=== PATIENT | female | born 1970 | race Caucasian/White ===

== ENCOUNTER 2017-01-28 00:03 | Emergency (ER) | payer BC ==
[2017-01-28 00:16] VITALS: BP 138/66
[2017-01-28] MEDS ORDERED: Ondansetron 4 MG/2 ML SDV IV ONE (00:33)
[2017-01-28] MEDS ORDERED: Sodium Chloride 0.9% 1,000 ML IV ONE (00:33)
--- NOTE | 2017-01-28 00:34 | EDM.PDOC ---
[id number]: SURG YESTERDAY MORNING, CANT KEEP ANYTHING DOWN Time Seen by Provider: 01/28/17 00:32 Source of Information: Reports: Patient History Limitations: Reports: No limitations - History of Present Illness INITIAL COMMENTS - FREE TEXT/NARRATIVE: vomiting all day s/p vein surgery yesterday. - Related Data Allergies/ADRs: Allergies Allergy/AdvReac Type Severity Reaction Status Date / Time atorvastatin Allergy Weakness Verified 01/28/17 00:19 zolmitriptan [From Zomig] Allergy Diarrhea Verified 01/28/17 00:19 sumatriptan [From Imitrex] AdvReac Chest Verified 01/28/17 00:16 Presssure sumatriptan succinate AdvReac Chest Verified 01/28/17 00:16 [From Imitrex] Presssure Home Meds: Home Meds Acetaminophen/Butalbital/Caff [Fioricet] 1 tab PO Q4H PRN 06/16/14 [History] Albuterol Sulfate [Albuterol Sulfate HFA] 2 puff INH Q4H PRN 06/16/14 [History] Aspirin [Halfprin] 1 tab PO DAILY 06/16/14 [History] Cranberry Ext/C/L. Sporogenes [Azo Cranberry] 1 tab PO DAILY 06/16/14 [History] Lisinopril 1 tab PO DAILY 06/16/14 [History] Vit #108/Iron/FA [ One Tablet] 1 tab PO DAILY 06/16/14 [History ] Warfarin Sodium [Jantoven] 1 tab PO ASDIRECTED 06/16/14 [History] Canagliflozin [Invokana] 100 mg PO DAILY 02/20/16 [History] Esomeprazole [NexIUM] 40 mg PO BEDTIME 02/20/16 [History] Glimepiride [Glimepiride] 6 mg PO DAILY 01/28/17 [History] Past Medical History Cardiovascular History: Reports: Aneurysm, Blood clots/VTE/DVT Other Respiratory History: allergies Gastrointestinal History: Reports: GERD Genitourinary History: Reports: None Neurological History: Reports: Migraines Endocrine/Metabolic History: Reports: Diabetes, type II - Past Surgical History HEENT Surgical History: Reports: Oral surgery Cardiovascular Surgical History: Reports: None GI Surgical History: Reports: Appendectomy, Cholecystectomy, Hernia repair/other Female Surgical History: Reports: section Neurological Surgical History: Reports: None Social & Family History - Family History Family Medical History: Noncontributory - Tobacco Use Smoking Status *Q: Never Smoker Second Hand Smoke Exposure: No - Caffeine Use Caffeine Use: Reports: Soda - Alcohol Use Days Per Week of Alcohol Use: 0 - Recreational Drug Use Recreational Drug Use: No - Living Situation & Occupation Living situation: Reports: with family Occupation: employed ED ROS GENERAL - Review of Systems Review Of Systems: ROS reveals no pertinent complaints other than HPI. ED EXAM, GI/ABD - Physical Exam Exam: See Below Exam Limited By: No limitations General Appearance: alert, WD/WN, mild distress, other (tearful) Ears: hearing grossly normal Throat/Mouth: Normal voice, No airway compromise Head: atraumatic Neck: non-tender Respiratory/Chest: no respiratory distress Cardiovascular: regular rate, rhythm GI/Abdominal: soft, non tender Neurological: alert, normal cognition, normal gait, no motor/sensory deficits Psychiatric: tearful Skin Exam: Warm, Dry Lymphatic: no adenopathy Course - Vital Signs Last Recorded V/S: Last Vital Signs Temp 36.2 C 01/28/17 00:09 Pulse 80 01/28/17 00:09 Resp 18 01/28/17 00:09 BP 138/66 01/28/17 00:09 Pulse Ox 99 01/28/17 00:09 - Orders/Labs/Meds Labs: Laboratory Tests 01/28/17 01/28/17 Range/Units 00:40 00:40 WBC 11.6 H (5.0-10.0) 10^3/uL RBC 4.95 (4.2-5.4) 10^6/uL Hgb 14.9 (12.0-16.0) g/dL Hct 44.8 (37.0-47.0) % MCV 90.5 (80-100) fL MCH 30.1 (27.0-34.0) pg MCHC 33.3 (33.0-35.0) g/dL Plt Count 233 (150-450) 10^3/uL Neut % (Auto) 66.5 (42.2-75.2) % Lymph % (Auto) 24.4 (20.5-50.1) % [place] % (Auto) 8.0 (2-8) % Eos % (Auto) 0.8 L (1.0-3.0) % Baso % (Auto) 0.3 (0.0-1.0) % Sodium 136 (135-145) mmol/L Potassium 3.7 (3.6-5.0) mmol/L Chloride 102 (101-111) mmol/L Carbon Dioxide 22.0 (21.0-31.0) mmol/L Anion Gap 15.7 BUN 11 (7-18) mg/dL Creatinine 0.6 (0.6-1.3) mg/dL Est Cr Clr Drug Dosing TNP Estimated GFR (MDRD) > 60 BUN/Creatinine Ratio 18.33 Glucose 198 H (74-105) mg/dL Calcium 8.6 (8.4-10.2) mg/dl Total Bilirubin 0.9 (0.2-1.0) mg/dL AST 25 (10-42) IU/L ALT 27 (10-60) IU/L Alkaline Phosphatase 63 (42-121) IU/L Total Protein 7.4 (6.7-8.2) g/dl Albumin 3.9 (3.2-5.5) g/dl Globulin 3.5 Albumin/Globulin Ratio 1.11 Meds: Medications Discontinued Medications Generic Name Dose Route Start Last Admin Trade Name Freq PRN Reason Stop Dose Admin Sodium Chloride 1,000 mls @ 999 mls/hr 01/28/17 00:33 01/28/17 00:45 Normal Saline IV 01/28/17 01:33 999 mls/hr .BOLUS ONE Administration Ondansetron HCl 4 mg 01/28/17 00:33 01/28/17 00:45 Zofran IV 01/28/17 00:34 4 mg ONETIME ONE Administration Ondansetron HCl Confirm 01/28/17 01:42 01/28/17 01:47 Zofran Odt Administered 01/28/17 01:43 Not Given Dose 8 mg .ROUTE .STK-MED ONE - Re-Assessments/Exams Free Text/Narrative Re-Assessment/Exam: 01/28/17 01:20 re-exam: feeling better post IV + zof. Departure - Departure Time of Disposition: 01:57 Disposition: Home, Self-Care 01 Condition: good Clinical Impression: Vomiting Instructions: Nausea and Vomiting, Adult, [id number] Forms: ED Department Discharge Additional Instructions: 1) avoid solid foods and have liquids next 48 hours 2) follow up at clinic or recheck as needed rx given: zofran 4mg ODT bid prn x 6
[2017-01-28 01:06] LABS: CHLORIDE,CL 102 mmol/L (101-111); SODIUM,NA 136 mmol/L (135-145)
[2017-01-28] MEDS ORDERED: Ondansetron 4 MG Tab.DIS ONE (01:42)
[2017-01-28] MEDS ORDERED: Ondansetron 4 MG Tab.DIS PO ONE (01:42)
== END 2017-01-28 01:57 | disposition home or self-care (01) ==
LOC: DL.ED 00:03
DX: R11.10 Vomiting, unspecified (principal); K21.9 Gastro-esophageal reflux disease without esophagitis; E11.9 Type 2 diabetes mellitus without complications; Z98.890 Other specified postprocedural states; Z88.8 Allergy status to other drugs, medicaments and biological substances; Z79.82 Long term (current) use of aspirin; Z79.01 Long term (current) use of anticoagulants; Z79.899 Other long term (current) drug therapy
CPT/HCPCS: 36415; 80053; 85025; 96360; 99282; J2405; J7030; A9270-GY

== ENCOUNTER 2017-08-03 22:06 | Emergency (ER) | payer BC ==
[2017-08-03] MEDS ORDERED: Butorphanol 2 MG/ML SDV IM ONE (23:23)
[2017-08-03] MEDS ORDERED: Nitrofurantoin Monohydrate/Macrocrystalline 100 MG Cap PO ONE (23:23)
[2017-08-03] MEDS ORDERED: Promethazine 25 MG/ML SDV IM ONE (23:23)
--- NOTE | 2017-08-03 23:31 | EDM.PDOC ---
ED HPI GENERAL MEDICAL PROBLEM - General Chief Complaint: ENT Problem Stated Complaint: DRY SOCKET, FEVER [id number] Time Seen by Provider: 08/03/17 23:25 Source of Information: Reports: Patient History Limitations: Reports: No Limitations - History of Present Illness INITIAL COMMENTS - FREE TEXT/NARRATIVE: s/p tooth extraction last week developed dry socket been Tx by DDS pain is not getting better, also had s/s UTI was on macrobid and getting better but now feels like it's returning, also throat been hurting and feeling feverish & shaky. Treatments MANAGER SCIENCE: Reports: Acetaminophen Generalized Pain Score (Numeric/FACES): 9 - Related Data Allergies Allergy/AdvReac Type Severity Reaction Status Date / Time atorvastatin Allergy Weakness Verified 01/28/17 00:19 zolmitriptan [From Zomig] Allergy Diarrhea Verified 01/28/17 00:19 sumatriptan [From Imitrex] AdvReac Chest Verified 01/28/17 00:16 Presssure sumatriptan succinate AdvReac Chest Verified 01/28/17 00:16 [From Imitrex] Presssure Home Meds: Home Meds Acetaminophen/Butalbital/Caff [Fioricet] 1 tab PO Q4H PRN 06/16/14 [History] Albuterol Sulfate [Albuterol Sulfate HFA] 2 puff INH Q4H PRN 06/16/14 [History] Aspirin [Halfprin] 1 tab PO DAILY 06/16/14 [History] Cranberry Ext/C/L. Sporogenes [Azo Cranberry] 1 tab PO DAILY 06/16/14 [History] Lisinopril 1 tab PO DAILY 06/16/14 [History] Vit #108/Iron/FA [ One Tablet] 1 tab PO DAILY 06/16/14 [History ] Warfarin Sodium [Jantoven] 1 tab PO ASDIRECTED 06/16/14 [History] Canagliflozin [Invokana] 100 mg PO DAILY 02/20/16 [History] Esomeprazole [NexIUM] 40 mg PO BEDTIME 02/20/16 [History] Glimepiride [Glimepiride] 6 mg PO DAILY 01/28/17 [History] Past Medical History Cardiovascular History: Reports: Aneurysm, Blood Clots/VTE/DVT Other Respiratory History: allergies Gastrointestinal History: Reports: GERD Genitourinary History: Reports: None Neurological History: Reports: Migraines Endocrine/Metabolic History: Reports: Diabetes, Type II - Past Surgical History HEENT Surgical History: Reports: Oral Surgery GI Surgical History: Reports: Appendectomy, Cholecystectomy, Hernia Repair/Other Female Surgical History: Reports: Section Neurological Surgical History: Reports: None Other Musculoskeletal Surgeries/Procedures:: Right knee surgery on June Social & Family History - Family History Family Medical History: Noncontributory - Tobacco Use Smoking Status *Q: Former Smoker Used Tobacco, but Quit: No Second Hand Smoke Exposure: No - Caffeine Use Caffeine Use: Reports: Soda, Tea - Alcohol Use Days Per Week of Alcohol Use: 0 - Recreational Drug Use Recreational Drug Use: No - Living Situation & Occupation Living situation: Reports: with Family Occupation: Employed ED ROS ENT - Review of Systems Review Of Systems: ROS reveals no pertinent complaints other than HPI. ED EXAM, ENT - Physical Exam Exam: See Below Exam Limited By: No Limitations General Appearance: Alert, WD/WN, Mild Distress, Other (general discomfort) Ears: Normal External Exam, Normal Canal, Hearing Grossly Normal, Normal TMs Mouth/Throat: Pharyngeal Erythema Head: Atraumatic Neck: Non-Tender, Full Range of Motion Respiratory/Chest: No Respiratory Distress Cardiovascular: Regular Rate, Rhythm GI/Abdominal: Soft, Non-Tender Neurological: Alert, Oriented, Normal Cognition, Normal Gait, No Motor/Sensory Deficits Psychiatric: Tearful Skin: Warm, Dry, Normal Color Lymphatic: No Adenopathy Course - Vital Signs Last Recorded V/S: Last Vital Signs Temp 37.1 C 08/03/17 22:36 Pulse 103 H 08/03/17 22:36 Resp 20 08/03/17 22:36 BP 129/65 08/03/17 22:36 Pulse Ox 98 08/03/17 22:36 - Orders/Labs/Meds Orders: Active Orders 24 hr Category Date Time Status CULTURE BLOOD [BC] Stat Lab 08/03/17 23:50 Results Labs: Laboratory Tests 08/03/17 08/03/17 08/03/17 Range/Units 22:49 23:50 23:50 WBC 13.5 H (5.0-10.0) 10^3/uL RBC 4.79 (4.2-5.4) 10^6/uL Hgb 14.3 (12.0-16.0) g/dL Hct 43.4 (37.0-47.0) % MCV 90.6 (80-100) fL MCH 29.9 (27.0-34.0) pg MCHC 32.9 L (33.0-35.0) g/dL Plt Count 281 (150-450) 10^3/uL Neut % (Auto) 69.3 (42.2-75.2) % Lymph % (Auto) 20.3 L (20.5-50.1) % [place] % (Auto) 9.1 H (2-8) % Eos % (Auto) 1.1 (1.0-3.0) % Baso % (Auto) 0.2 (0.0-1.0) % Add Manual Diff Yes Neutrophils % (Manual) 61 (42-75) % Band Neutrophils % 4 % Lymphocytes % (Manual) 27 (20-50) % Atypical Lymphs % 0 % Monocytes % (Manual) 7 (2-8) % Eosinophils % (Manual) 1 (1-3) % Basophils % (Manual) 0 Sodium 136 (135-145) mmol/L Potassium 4.0 (3.6-5.0) mmol/L Chloride 101 (101-111) mmol/L Carbon Dioxide 23.0 (21.0-31.0) mmol/L Anion Gap 16.0 BUN 16 (7-18) mg/dL Creatinine 0.6 (0.6-1.3) mg/dL Est Cr Clr Drug Dosing 116.35 mL/min Estimated GFR (MDRD) > 60 BUN/Creatinine Ratio 26.66 Glucose 123 H (74-105) mg/dL Lactic Acid (0.5-2.2) mmol/L Calcium 8.6 (8.4-10.2) mg/dl Total Bilirubin 0.8 (0.2-1.0) mg/dL AST 18 (10-42) IU/L ALT 18 (10-60) IU/L Alkaline Phosphatase 66 (42-121) IU/L Total Protein 6.8 (6.7-8.2) g/dl Albumin 3.8 (3.2-5.5) g/dl Globulin 3.0 Albumin/Globulin Ratio 1.27 Urine Color Yellow (YELLOW) Urine Appearance Clear (CLEAR) Urine pH 6.5 (5.0-9.0) Ur Specific [place] 1.020 (1.005-1.030) Urine Protein Negative (NEGATIVE) Urine Glucose (UA) 500 H (NEGATIVE) Urine Ketones 40 H (NEGATIVE) Urine Occult Blood Negative (NEGATIVE) Urine Nitrite Negative (NEGATIVE) Urine Bilirubin Negative (NEGATIVE) Urine Urobilinogen 0.2 (0.2-1.0) mg/dL Ur Leukocyte Esterase Negative (NEGATIVE) Urine RBC Not seen /HPF Urine WBC 0-5 (0-5/HPF) /HPF Ur Epithelial Cells Few /HPF Urine Bacteria Moderate H (0-FEW/HPF) /HPF 08/03/17 Range/Units 23:50 WBC (5.0-10.0) 10^3/uL RBC (4.2-5.4) 10^6/uL Hgb (12.0-16.0) g/dL Hct (37.0-47.0) % MCV (80-100) fL MCH (27.0-34.0) pg MCHC (33.0-35.0) g/dL Plt Count (150-450) 10^3/uL Neut % (Auto) (42.2-75.2) % Lymph % (Auto) (20.5-50.1) % [place] % (Auto) (2-8) % Eos % (Auto) (1.0-3.0) % Baso % (Auto) (0.0-1.0) % Add Manual Diff Neutrophils % (Manual) (42-75) % Band Neutrophils % % Lymphocytes % (Manual) (20-50) % Atypical Lymphs % % Monocytes % (Manual) (2-8) % Eosinophils % (Manual) (1-3) % Basophils % (Manual) Sodium (135-145) mmol/L Potassium (3.6-5.0) mmol/L Chloride (101-111) mmol/L Carbon Dioxide (21.0-31.0) mmol/L Anion Gap BUN (7-18) mg/dL Creatinine (0.6-1.3) mg/dL Est Cr Clr Drug Dosing mL/min Estimated GFR (MDRD) BUN/Creatinine Ratio Glucose (74-105) mg/dL Lactic Acid 1.0 (0.5-2.2) mmol/L Calcium (8.4-10.2) mg/dl Total Bilirubin (0.2-1.0) mg/dL AST (10-42) IU/L ALT (10-60) IU/L Alkaline Phosphatase (42-121) IU/L Total Protein (6.7-8.2) g/dl Albumin (3.2-5.5) g/dl Globulin Albumin/Globulin Ratio Urine Color (YELLOW) Urine Appearance (CLEAR) Urine pH (5.0-9.0) Ur Specific [place] (1.005-1.030) Urine Protein (NEGATIVE) Urine Glucose (UA) (NEGATIVE) Urine Ketones (NEGATIVE) Urine Occult Blood (NEGATIVE) Urine Nitrite (NEGATIVE) Urine Bilirubin (NEGATIVE) Urine Urobilinogen (0.2-1.0) mg/dL Ur Leukocyte Esterase (NEGATIVE) Urine RBC /HPF Urine WBC (0-5/HPF) /HPF Ur Epithelial Cells /HPF Urine Bacteria (0-FEW/HPF) /HPF Meds: Medications Discontinued Medications Generic Name Dose Route Start Last Admin Trade Name Freq PRN Reason Stop Dose Admin Butorphanol Tartrate 2 mg 08/03/17 23:23 08/03/17 23:40 Stadol IM 08/03/17 23:24 2 mg ONETIME ONE Administration Nitrofurantoin Macrocrystals 100 mg 08/03/17 23:23 08/03/17 23:39 Macrobid PO 08/03/17 23:24 100 mg ONETIME ONE Administration Penicillin G Procaine/Benzathine 1.2 millunits 08/04/17 00:35 Bicillin C-R 600/600 IM 08/04/17 00:36 ONETIME ONE Promethazine HCl 25 mg 08/03/17 23:23 08/03/17 23:40 Phenergan IM 08/03/17 23:24 25 mg ONETIME ONE Administration - Re-Assessments/Exams Free Text/Narrative Re-Assessment/Exam: 08/04/17 00:39 results discussed with pt & spouse Departure - Departure Time of Disposition: 00:40 Disposition: Home, Self-Care 01 Condition: Good Clinical Impression: Strep sore throat, Dry tooth socket UTI (urinary tract infection) Qualifiers: Urinary tract infection type: acute cystitis Hematuria presence: without hematuria Qualified Code(s): N30.00 - Acute cystitis without hematuria - Discharge Information Instructions: Strep Throat, [id number] Forms: ED Department Discharge Additional Instructions: 1) avoid solid foods and scratchy foods 2) have liquids and soft foods 3) follow up at clinic or recheck as needed - My Orders Last 24 Hours: My Active Orders 08/03/17 23:50 CULTURE BLOOD [BC] Stat - Assessment/Plan Last 24 Hours: My Active Orders 08/03/17 23:50 CULTURE BLOOD [BC] Stat
[2017-08-04 00:32] LABS: CHLORIDE,CL 101 mmol/L (101-111); SODIUM,NA 136 mmol/L (135-145)
[2017-08-04] MEDS ORDERED: Penicillin G Benzathine/Procaine 600-600 1.2 Millunits/2 ML Syringe IM ONE (00:35)
[2017-08-04 00:49] VITALS: BP 128/89
== END 2017-08-04 01:05 | disposition home or self-care (01) ==
LOC: DL.ED 22:06
DX: J02.0 Streptococcal pharyngitis (principal); M27.3 Alveolitis of jaws; N30.00 Acute cystitis without hematuria; K21.9 Gastro-esophageal reflux disease without esophagitis; E11.9 Type 2 diabetes mellitus without complications; Z88.8 Allergy status to other drugs, medicaments and biological substances; Z79.01 Long term (current) use of anticoagulants; Z79.899 Other long term (current) drug therapy; Z87.891 Personal history of nicotine dependence
CPT/HCPCS: 36415; 80053; 81001; 83605; 85025; 87040; 87430; 96372; 99283; A9270; J0558; J0595; J2550

== ENCOUNTER 2017-12-09 17:42 | Emergency (ER) | payer BC ==
[2017-12-09 18:00] VITALS: BP 142/77
--- NOTE | 2017-12-09 18:55 | EDM.PDOC ---
ED HPI GENERAL MEDICAL PROBLEM - General Chief Complaint: Genitourinary Problem Stated Complaint: [id number] BLADDER INFECTION Time Seen by Provider: 12/09/17 18:40 Source of Information: Reports: Patient, RN, RN Notes Reviewed History Limitations: Reports: No Limitations - History of Present Illness INITIAL COMMENTS - FREE TEXT/NARRATIVE: Pt presents to the ER with c/o low abdominal pain (bilateral), frequency, urgency, burning with urination. Patient states she has had chills but no fever , nausea but no vomiting. Patient states the pain is in her right flank at times. Onset: Gradual Duration: Getting Worse Location: Reports: Abdomen Quality: Reports: Ache, Pressure, Throbbing Severity: Moderate Improves with: Reports: None Worsens with: Reports: None Associated Symptoms: Reports: Fever/Chills, Nausea/Vomiting Lower Pelvic Pain Score (Numeric/FACES): 7 - Related Data Allergies Allergy/AdvReac Type Severity Reaction Status Date / Time atorvastatin Allergy Weakness Verified 01/28/17 00:19 zolmitriptan [From Zomig] Allergy Diarrhea Verified 01/28/17 00:19 sumatriptan [From Imitrex] AdvReac Chest Verified 01/28/17 00:16 Presssure sumatriptan succinate AdvReac Chest Verified 01/28/17 00:16 [From Imitrex] Presssure Home Meds: Home Meds Acetaminophen/Butalbital/Caff [Fioricet] 1 tab PO Q4H PRN 06/16/14 [History] Albuterol Sulfate [Albuterol Sulfate HFA] 2 puff INH Q4H PRN 06/16/14 [History] Aspirin [Halfprin] 1 tab PO DAILY 06/16/14 [History] Cranberry Ext/C/L. Sporogenes [Azo Cranberry] 1 tab PO DAILY 06/16/14 [History] Lisinopril 1 tab PO DAILY 06/16/14 [History] Vit #108/Iron/FA [ One Tablet] 1 tab PO DAILY 06/16/14 [History ] Warfarin Sodium [Jantoven] 1 tab PO DAILY 06/16/14 [History] Canagliflozin [Invokana] 300 mg PO DAILY 02/20/16 [History] Esomeprazole [NexIUM] 40 mg PO BEDTIME 02/20/16 [History] Glimepiride [Glimepiride] 6 mg PO DAILY 01/28/17 [History] Liraglutide [Victoza] 1.8 mg SQ DAILY 12/09/17 [History] Past Medical History Cardiovascular History: Reports: Aneurysm, Blood Clots/VTE/DVT Respiratory History: Reports: Other (See Below) Other Respiratory History: allergies Gastrointestinal History: Reports: GERD Genitourinary History: Reports: UTI, Recurrent Neurological History: Reports: Migraines Endocrine/Metabolic History: Reports: Diabetes, Type II - Past Surgical History HEENT Surgical History: Reports: Oral Surgery GI Surgical History: Reports: Appendectomy, Cholecystectomy, Hernia Repair/Other Female Surgical History: Reports: Section Neurological Surgical History: Reports: None Musculoskeletal Surgical History: Reports: Other (See Below) Other Musculoskeletal Surgeries/Procedures:: Right knee surgery on June Social & Family History - Family History Family Medical History: Noncontributory - Tobacco Use Smoking Status *Q: Current Status Unknown Used Tobacco, but Quit: No Second Hand Smoke Exposure: No - Caffeine Use Caffeine Use: Reports: Soda, Tea - Alcohol Use Days Per Week of Alcohol Use: 0 - Recreational Drug Use Recreational Drug Use: No - Living Situation & Occupation Living situation: Reports: with Family Occupation: Employed ED ROS GENERAL - Review of Systems Review Of Systems: ROS reveals no pertinent complaints other than HPI. ED EXAM, RENAL/ - Physical Exam Exam: See Below Exam Limited By: No Limitations General Appearance: Alert, WD/WN, No Apparent Distress Eye Exam: Bilateral Eye: EOMI, Normal Inspection, PERRL Ears: Normal External Exam, Hearing Grossly Normal Nose: Normal Inspection Throat/Mouth: Normal Inspection, Normal Voice, No Airway Compromise Head: Atraumatic Neck: Normal Inspection, Supple, Non-Tender, Full Range of Motion Respiratory/Chest: No Respiratory Distress, Lungs Clear, Normal Breath Sounds, No Accessory Muscle Use, Chest Non-Tender Cardiovascular: Normal Peripheral Pulses, Regular Rate, Rhythm, No Edema, No Gallop, No JVD, No Murmur, No Rub GI/Abdominal: Normal Bowel Sounds, Soft, Non-Tender, No Organomegaly, No Distention, No Abnormal Bruit, No Mass (Female) Exam: Deferred Rectal (Female) Exam: Deferred Back Exam: Normal Inspection, Full Range of Motion, CVA Tenderness (R) Extremities: Normal Inspection, Normal Range of Motion, Non-Tender, Normal Capillary Refill, No Pedal Edema Neurological: Alert, Oriented, CN II-XII Intact, Normal Cognition, Normal Gait, Normal Reflexes, No Motor/Sensory Deficits Psychiatric: Normal Affect, Normal Mood Skin Exam: Warm, Dry, Intact, Normal Color, No Rash Lymphatic: No Adenopathy Course - Vital Signs Last Recorded V/S: Last Vital Signs Temp 97.9 F 12/09/17 17:44 Pulse 93 12/09/17 17:44 Resp 18 12/09/17 17:44 BP 142/77 H 12/09/17 17:44 Pulse Ox 98 12/09/17 17:44 - Orders/Labs/Meds Orders: Active Orders 24 hr Category Date Time Status CULTURE URINE [RM] Stat Lab 12/09/17 17:52 Results Labs: Laboratory Tests 12/09/17 Range/Units 17:52 Urine Color Yellow (YELLOW) Urine Appearance Cloudy (CLEAR) Urine pH 5.5 (5.0-9.0) Ur Specific [place] 1.025 (1.005-1.030) Urine Protein Negative (NEGATIVE) Urine Glucose (UA) Negative (NEGATIVE) Urine Ketones Negative (NEGATIVE) Urine Occult Blood Negative (NEGATIVE) Urine Nitrite Negative (NEGATIVE) Urine Bilirubin Negative (NEGATIVE) Urine Urobilinogen 0.2 (0.2-1.0) mg/dL Ur Leukocyte Esterase Small H (NEGATIVE) Urine RBC 5-10 H /HPF Urine WBC 30-40 H (0-5/HPF) /HPF Ur Epithelial Cells Moderate H /HPF Amorphous Sediment Few (0/HPF) /HPF Urine Bacteria Few (0-FEW/HPF) /HPF Urine Mucus Many H /LPF Meds: Medications Discontinued Medications Generic Name Dose Route Start Last Admin Trade Name Freq PRN Reason Stop Dose Admin Metronidazole 750 mg 12/09/17 18:59 12/09/17 19:03 Metronidazole PO 12/09/17 19:00 750 mg ONETIME ONE Administration Nitrofurantoin Macrocrystals 100 mg 12/09/17 19:00 12/09/17 19:03 Macrobid PO 12/09/17 19:01 100 mg ONETIME ONE Administration Departure - Departure Time of Disposition: 18:52 Disposition: Home, Self-Care 01 Condition: Good Clinical Impression: Bacterial vaginosis UTI (urinary tract infection) Qualifiers: Urinary tract infection type: acute cystitis Hematuria presence: without hematuria Qualified Code(s): N30.00 - Acute cystitis without hematuria - Discharge Information Instructions: Urinary Tract Infection, Adult, [id number], Bacterial Vaginosis , [id number] Referrals: Irma Corona MD [Primary Care Provider] - Forms: ED Department Discharge Additional Instructions: RX: Macrobid, Metronidazole Follow up with your primary care facility next week for recheck Drink plenty of water Tylenol/Ibuprofen as directed for fever/pain - My Orders Last 24 Hours: My Active Orders 12/09/17 17:52 CULTURE URINE [RM] Stat - Assessment/Plan Last 24 Hours: My Active Orders 12/09/17 17:52 CULTURE URINE [RM] Stat
[2017-12-09] MEDS ORDERED: metroNIDAZOLE 250 MG Tab PO ONE (18:59)
[2017-12-09] MEDS ORDERED: Nitrofurantoin Monohydrate/Macrocrystalline 100 MG Cap PO ONE (19:00)
== END 2017-12-09 19:11 | disposition home or self-care (01) ==
LOC: DL.ED 17:42
DX: N30.00 Acute cystitis without hematuria (principal); N76.0 Acute vaginitis; K21.9 Gastro-esophageal reflux disease without esophagitis; E11.9 Type 2 diabetes mellitus without complications; Z90.49 Acquired absence of other specified parts of digestive tract; Z98.890 Other specified postprocedural states; Z79.82 Long term (current) use of aspirin; Z79.01 Long term (current) use of anticoagulants; Z79.84 Long term (current) use of oral hypoglycemic drugs; Z79.899 Other long term (current) drug therapy; Z88.8 Allergy status to other drugs, medicaments and biological substances
CPT/HCPCS: 81001; 87086; 99283; A9270

== ENCOUNTER 2018-06-09 11:10 | Emergency (ER) | payer BC ==
[2018-06-09 11:24] VITALS: BP 124/77
[2018-06-09] MEDS ORDERED: Albuterol/Ipratropium 3.0-0.5 MG/3 ML Neb Soln NEB ONE (11:51)
[2018-06-09 12:35] LABS: ANION GAP 15.1; CHLORIDE,CL 99 mmol/L (101-111); SODIUM,NA 135 mmol/L (135-145)
[2018-06-09] MEDS ORDERED: cefTRIAXone 1 GM, Lidocaine 1% 2.1 ML IM ONE ×2 (12:48)
--- NOTE | 2018-06-09 12:55 | EDM.PDOC ---
Scribed by Elizabeth Krishna 06/09/18 1254 for Mac Henson PA ED HPI GENERAL MEDICAL PROBLEM - General Chief Complaint: Respiratory Problem Stated Complaint: CONGESTION, SOB, DIABETIC Time Seen by Provider: 06/09/18 11:45 Source of Information: Reports: Patient, RN, RN Notes Reviewed History Limitations: Reports: No Limitations - History of Present Illness INITIAL COMMENTS - FREE TEXT/NARRATIVE: Patient is a 47-year-old female with shortness of breath. She has a questionable inhaler. She has also exertional asthma. She cannot find her neb machine or inhaler. This all started yesterday when on an airplane. She also reports a yeast infection. She has morbid obesity. Her airplane yesterday was from [place]. Onset Date: 06/08/18 Duration: Getting Worse Location: Reports: Chest Quality: Reports: Ache Severity: Moderate Improves with: Reports: None Worsens with: Reports: None Associated Symptoms: Reports: No Other Symptoms - Related Data Allergies Allergy/AdvReac Type Severity Reaction Status Date / Time atorvastatin Allergy Weakness Verified 06/09/18 11:24 zolmitriptan [From Zomig] Allergy Diarrhea Verified 06/09/18 11:24 sumatriptan [From Imitrex] AdvReac Chest Verified 06/09/18 11:24 Presssure sumatriptan succinate AdvReac Chest Verified 06/09/18 11:24 [From Imitrex] Presssure Home Meds: Home Meds Acetaminophen/Butalbital/Caff [Fioricet] 1 tab PO Q4H PRN 06/16/14 [History] Albuterol Sulfate [Albuterol Sulfate HFA] 2 puff INH Q4H PRN 06/16/14 [History] Cranberry Ext/C/L. Sporogenes [Azo Cranberry] 1 tab PO DAILY 06/16/14 [History] Lisinopril 1 tab PO DAILY 06/16/14 [History] Vit #108/Iron/FA [ One Tablet] 1 tab PO DAILY 06/16/14 [History ] Warfarin Sodium [Jantoven] 1 tab PO DAILY 06/16/14 [History] Esomeprazole [NexIUM] 40 mg PO BEDTIME 02/20/16 [History] Glimepiride 6 mg PO DAILY 01/28/17 [History] Liraglutide [Victoza] 1.8 mg SQ DAILY 12/09/17 [History] Past Medical History Cardiovascular History: Reports: Aneurysm, Blood Clots/VTE/DVT Respiratory History: Reports: Asthma, Other (See Below) Other Respiratory History: allergies Gastrointestinal History: Reports: GERD Genitourinary History: Reports: UTI, Recurrent Neurological History: Reports: Migraines Psychiatric History: Reports: None Endocrine/Metabolic History: Reports: Diabetes, Type II Dermatologic History: Reports: None - Past Surgical History HEENT Surgical History: Reports: Oral Surgery GI Surgical History: Reports: Appendectomy, Cholecystectomy, Hernia Repair/Other Female Surgical History: Reports: Section Neurological Surgical History: Reports: None Musculoskeletal Surgical History: Reports: Other (See Below) Other Musculoskeletal Surgeries/Procedures:: Right knee surgery on June Social & Family History - Family History Family Medical History: Noncontributory - Tobacco Use Smoking Status *Q: Never Smoker Second Hand Smoke Exposure: No - Caffeine Use Caffeine Use: Reports: Soda - Recreational Drug Use Recreational Drug Use: No - Living Situation & Occupation Living situation: Reports: with Family Occupation: Employed ED ROS GENERAL - Review of Systems Review Of Systems: ROS reveals no pertinent complaints other than HPI. ED EXAM, GENERAL - Physical Exam Exam: See Below Exam Limited By: No Limitations General Appearance: Alert, WD/WN, No Apparent Distress Eye Exam: Bilateral Eye: EOMI, Normal Inspection, PERRL Ears: Normal External Exam, Normal Canal, Hearing Grossly Normal, Normal TMs Nose: Normal Inspection Throat/Mouth: Normal Inspection, Normal Lips, Normal Teeth, Normal Gums, Normal Oropharynx, Normal Voice, No Airway Compromise Head: Atraumatic, Normocephalic Neck: Normal Inspection, Supple, Non-Tender, Full Range of Motion Respiratory/Chest: Other (lung sounds clear bilaterally. ) Cardiovascular: Other (tachypnea) GI/Abdominal: Other (morbidly obese) (Female) Exam: Deferred, Other Rectal (Female) Exam: Deferred Back Exam: Normal Inspection, Full Range of Motion, NT Extremities: Normal Inspection, Normal Range of Motion, Non-Tender, Normal Capillary Refill, No Pedal Edema Neurological: Alert, Oriented, CN II-XII Intact, Normal Cognition, Normal Gait, Normal Reflexes, No Motor/Sensory Deficits Psychiatric: Anxious Skin Exam: Warm, Dry, Intact, Normal Color, No Rash Lymphatic: No Adenopathy Course - Vital Signs Last Recorded V/S: Last Vital Signs Temp 36.8 C 06/09/18 11:18 Pulse 102 H 06/09/18 11:58 Resp 16 06/09/18 11:18 BP 124/77 06/09/18 11:18 Pulse Ox 98 06/09/18 11:18 - Orders/Labs/Meds Orders: Active Orders 24 hr Category Date Time Status RT Aerosol Therapy [RC] ASDIRECTED Care 06/09/18 11:52 Active CULTURE BLOOD [BC] Stat Lab 06/09/18 12:03 Received CULTURE BLOOD [BC] Stat Lab 06/09/18 12:08 Received CULTURE STREP A CONFIRMATION [] Stat Lab 06/09/18 11:20 Results STREP SCRN A RAPID W CULT CONF [RM] Stat Lab 06/09/18 11:20 Results UA W/MICROSCOPIC [URIN] Stat Lab 06/09/18 11:45 Ordered Blood Culture x2 Reflex Set [OM.PC] Stat Oth 06/09/18 11:43 Ordered Labs: Laboratory Tests 06/09/18 06/09/18 06/09/18 Range/Units 11:45 12:03 12:03 WBC 14.3 H (5.0-10.0) 10^3/uL RBC 5.06 (4.2-5.4) 10^6/uL Hgb 15.1 (12.0-16.0) g/dL Hct 46.2 (37.0-47.0) % MCV 91.3 (80-100) fL MCH 29.8 (27.0-34.0) pg MCHC 32.7 L (33.0-35.0) g/dL Plt Count 266 (150-450) 10^3/uL Neut % (Auto) 76.6 H (42.2-75.2) % Lymph % (Auto) 13.4 L (20.5-50.1) % [place] % (Auto) 7.4 (2-8) % Eos % (Auto) 2.4 (1.0-3.0) % Baso % (Auto) 0.2 (0.0-1.0) % Sodium (135-145) mmol/L Potassium (3.6-5.0) mmol/L Chloride (101-111) mmol/L Carbon Dioxide (21.0-31.0) mmol/L Anion Gap BUN (7-18) mg/dL Creatinine (0.6-1.3) mg/dL Est Cr Clr Drug Dosing mL/min Estimated GFR (MDRD) BUN/Creatinine Ratio Glucose (74-105) mg/dL Lactic Acid 2.1 (0.5-2.2) mmol/L Calcium (8.4-10.2) mg/dl Total Bilirubin (0.2-1.0) mg/dL AST (10-42) IU/L ALT (10-60) IU/L Alkaline Phosphatase (42-121) IU/L Total Protein (6.7-8.2) g/dl Albumin (3.2-5.5) g/dl Globulin Albumin/Globulin Ratio Urine Color Yellow (YELLOW) Urine Appearance Slightly cloudy (CLEAR) Urine pH 7.0 (5.0-9.0) Ur Specific [place] 1.020 (1.005-1.030) Urine Protein Negative (NEGATIVE) Urine Glucose (UA) 500 H (NEGATIVE) Urine Ketones 15 H (NEGATIVE) Urine Occult Blood Negative (NEGATIVE) Urine Nitrite Negative (NEGATIVE) Urine Bilirubin Negative (NEGATIVE) Urine Urobilinogen 0.2 (0.2-1.0) mg/dL Ur Leukocyte Esterase Negative (NEGATIVE) Urine RBC Not seen /HPF Urine WBC 5-10 H (0-5/HPF) /HPF Ur Epithelial Cells Few /HPF Urine Bacteria Moderate H (0-FEW/HPF) /HPF Urine Mucus Rare /LPF 06/09/18 Range/Units 12:03 WBC (5.0-10.0) 10^3/uL RBC (4.2-5.4) 10^6/uL Hgb (12.0-16.0) g/dL Hct (37.0-47.0) % MCV (80-100) fL MCH (27.0-34.0) pg MCHC (33.0-35.0) g/dL Plt Count (150-450) 10^3/uL Neut % (Auto) (42.2-75.2) % Lymph % (Auto) (20.5-50.1) % [place] % (Auto) (2-8) % Eos % (Auto) (1.0-3.0) % Baso % (Auto) (0.0-1.0) % Sodium 135 (135-145) mmol/L Potassium 4.1 (3.6-5.0) mmol/L Chloride 99 L (101-111) mmol/L Carbon Dioxide 25.0 (21.0-31.0) mmol/L Anion Gap 15.1 BUN 12 (7-18) mg/dL Creatinine 0.6 (0.6-1.3) mg/dL Est Cr Clr Drug Dosing 110.84 mL/min Estimated GFR (MDRD) > 60 BUN/Creatinine Ratio 20.00 Glucose 210 H (74-105) mg/dL Lactic Acid (0.5-2.2) mmol/L Calcium 8.8 (8.4-10.2) mg/dl Total Bilirubin 0.6 (0.2-1.0) mg/dL AST 24 (10-42) IU/L ALT 22 (10-60) IU/L Alkaline Phosphatase 74 (42-121) IU/L Total Protein 7.5 (6.7-8.2) g/dl Albumin 3.9 (3.2-5.5) g/dl Globulin 3.6 Albumin/Globulin Ratio 1.08 Urine Color (YELLOW) Urine Appearance (CLEAR) Urine pH (5.0-9.0) Ur Specific [place] (1.005-1.030) Urine Protein (NEGATIVE) Urine Glucose (UA) (NEGATIVE) Urine Ketones (NEGATIVE) Urine Occult Blood (NEGATIVE) Urine Nitrite (NEGATIVE) Urine Bilirubin (NEGATIVE) Urine Urobilinogen (0.2-1.0) mg/dL Ur Leukocyte Esterase (NEGATIVE) Urine RBC /HPF Urine WBC (0-5/HPF) /HPF Ur Epithelial Cells /HPF Urine Bacteria (0-FEW/HPF) /HPF Urine Mucus /LPF Meds: Medications Discontinued Medications Generic Name Dose Route Start Last Admin Trade Name Freq PRN Reason Stop Dose Admin Albuterol/Ipratropium 3 ml 06/09/18 11:51 06/09/18 11:57 Duoneb 3.0-0.5 Mg/3 Ml NEB 06/09/18 11:52 3 ml ONETIME ONE Administration Ceftriaxone Sodium 1 gm/ 0 gm 06/09/18 12:48 Lidocaine HCl 2.1 ml IM 06/09/18 12:49 ONETIME ONE Departure - Departure Time of Disposition: 12:50 Disposition: Home, Self-Care 01 Condition: Fair Clinical Impression: Bronchitis Exacerbation of asthma Qualifiers: Asthma severity: moderate Asthma persistence: persistent Qualified Code(s): J45.41 - Moderate persistent asthma with (acute) exacerbation - Discharge Information *PRESCRIPTION DRUG MONITORING PROGRAM REVIEWED*: Not Applicable *COPY OF PRESCRIPTION DRUG MONITORING REPORT IN PATIENT MARIVEL: Not Applicable Instructions: Asthma, Adult, [id number], Acute Bronchitis, Adult, Easy-to- Read Forms: ED Department Discharge Care Plan Goals: The patient was advised of the examination, lab and x-ray results during the visit. The patient was given a breathing treatment and an injection of Rocephin while in the ED. The patinet was discharged with a script for Azithromycin (250 mg) #6 to take 2 by mouth on day 1 and 1 by mouth on days 2-5 and Prednisone ( 20 mg) #10 to take 2 by mouth daily for 5 days. The patient should use her nebulizer and rescue inhaler as directed for temporary symptom relief. If the patient has any additional symptoms or concerns, the patient should follow-up with her primary care facility or return to the emergency department. - My Orders Last 24 Hours: My Active Orders 06/09/18 11:20 CULTURE STREP A CONFIRMATION [RM] Stat STREP SCRN A RAPID W CULT CONF [RM] Stat 06/09/18 11:43 Blood Culture x2 Reflex Set [OM.PC] Stat 06/09/18 11:45 UA W/MICROSCOPIC [URIN] Stat 06/09/18 11:52 RT Aerosol Therapy [RC] ASDIRECTED 06/09/18 12:03 CULTURE BLOOD [BC] Stat 06/09/18 12:08 CULTURE BLOOD [BC] Stat - Assessment/Plan Last 24 Hours: My Active Orders 06/09/18 11:20 CULTURE STREP A CONFIRMATION [RM] Stat STREP SCRN A RAPID W CULT CONF [RM] Stat 06/09/18 11:43 Blood Culture x2 Reflex Set [OM.PC] Stat 06/09/18 11:45 UA W/MICROSCOPIC [URIN] Stat 06/09/18 11:52 RT Aerosol Therapy [RC] ASDIRECTED 06/09/18 12:03 CULTURE BLOOD [BC] Stat 06/09/18 12:08 CULTURE BLOOD [BC] Stat I have read and agree with the documentation that has been completed regarding this visit. By signing this record, I attest that the documentation was completed in my physical presence and is an accurate record of the encounter.
== END 2018-06-09 13:16 | disposition home or self-care (01) ==
LOC: DL.ED 11:10
DX: J45.41 Moderate persistent asthma with (acute) exacerbation (principal); J40 Bronchitis, not specified as acute or chronic; E66.01 Morbid (severe) obesity due to excess calories; E11.9 Type 2 diabetes mellitus without complications; Z79.01 Long term (current) use of anticoagulants; Z79.899 Other long term (current) drug therapy; Z88.8 Allergy status to other drugs, medicaments and biological substances
CPT/HCPCS: 36415; 71046; 80053; 81001; 83605; 85025; 87040; 87081; 87430; 94640; 96372; 99285; J0696; J7620-GY

== ENCOUNTER 2019-03-23 21:24 | Emergency (ER) | payer BC ==
[2019-03-23 21:32] VITALS: BP 128/59
[2019-03-23 22:04] LABS: ANION GAP 15.2; CHLORIDE,CL 99 mmol/L (101-111); SODIUM,NA 132 mmol/L (135-145)
--- NOTE | 2019-03-23 22:14 | EDM.PDOC ---
ED HPI GENERAL MEDICAL PROBLEM - General Chief Complaint: Cardiovascular Problem Stated Complaint: NOT FEELING GOOD/WEAK [id number] Time Seen by Provider: 03/23/19 21:55 Source of Information: Reports: Patient History Limitations: Reports: No Limitations - History of Present Illness INITIAL COMMENTS - FREE TEXT/NARRATIVE: This 48 yo female patient reports to the ED with generalized weakness and increased tiredness since she had an angiogram on 03/19/19. The patient has not been seen by her primary care facility. The patient reports she has been feeling a little nauseated, but she has not vomited at this time. The patient reports she has been eating and drinking normally over the past couple of days. The patient reports she has had exposure to mosquitos and ticks. The patient reports she had increased weakness today while walking through [place]. Onset Date: 03/26/19 Duration: Constant Location: Reports: Generalized Quality: Reports: Other Severity: Moderate Improves with: Reports: None Worsens with: Reports: None Context: Reports: Other Associated Symptoms: Reports: No Other Symptoms Left Upper Chest Pain Score (Numeric/FACES): 2 - Related Data Allergies Allergy/AdvReac Type Severity Reaction Status Date / Time zolmitriptan [From Zomig] Allergy Diarrhea Verified 08/31/18 05:04 sumatriptan [From Imitrex] AdvReac Chest Verified 08/31/18 05:04 Presssure sumatriptan succinate AdvReac Chest Verified 08/31/18 05:04 [From Imitrex] Presssure Home Meds: Home Meds Acetaminophen/Butalbital/Caff [Fioricet] 1 tab PO Q4H PRN 06/16/14 [History] Albuterol Sulfate [Albuterol Sulfate HFA] 2 puff INH Q4H PRN 06/16/14 [History] Cranberry Ext/C/L. Sporogenes [Azo Cranberry] 1 tab PO DAILY 06/16/14 [History] Lisinopril 10 mg PO DAILY 06/16/14 [History] Mv-Mn/Iron/FA/Herbal/Digestive [ One Tablet] 1 tab PO DAILY 06/16/14 [ History] Warfarin Sodium [Jantoven] 1 tab PO DAILY 06/16/14 [History] Esomeprazole [NexIUM] 40 mg PO BEDTIME 02/20/16 [History] Glimepiride 6 mg PO DAILY 01/28/17 [History] Liraglutide [Victoza] 1.8 mg SQ DAILY 12/09/17 [History] Past Medical History Cardiovascular History: Reports: Aneurysm, Blood Clots/VTE/DVT, Other (See Below ) Respiratory History: Reports: Asthma, Other (See Below) Other Respiratory History: allergies Gastrointestinal History: Reports: GERD Genitourinary History: Reports: UTI, Recurrent Neurological History: Reports: Migraines Psychiatric History: Reports: None Endocrine/Metabolic History: Reports: Diabetes, Type II Dermatologic History: Reports: None - Past Surgical History HEENT Surgical History: Reports: Oral Surgery Cardiovascular Surgical History: Reports: Other (See Below) Other Cardiovascular Surgeries/Procedures: angiogram 03/19/19 GI Surgical History: Reports: Appendectomy, Cholecystectomy, Hernia Repair/Other Female Surgical History: Reports: Section Neurological Surgical History: Reports: None Musculoskeletal Surgical History: Reports: Other (See Below) Other Musculoskeletal Surgeries/Procedures:: Right knee surgery on June Social & Family History - Family History Family Medical History: Noncontributory - Tobacco Use Smoking Status *Q: Never Smoker - Caffeine Use Caffeine Use: Reports: Coffee, Soda - Recreational Drug Use Recreational Drug Use: No - Living Situation & Occupation Living situation: Reports: with Family Occupation: Employed ED ROS GENERAL - Review of Systems Review Of Systems: ROS reveals no pertinent complaints other than HPI. ED EXAM, GENERAL - Physical Exam Exam: See Below Exam Limited By: No Limitations General Appearance: Alert, WD/WN, No Apparent Distress Eye Exam: Bilateral Eye: EOMI, Normal Inspection, PERRL Ears: Normal External Exam, Normal Canal, Hearing Grossly Normal, Normal TMs Nose: Normal Inspection, Normal Mucosa, No Blood Throat/Mouth: Normal Inspection, Normal Lips, Normal Teeth, Normal Gums, Normal Oropharynx, Normal Voice, No Airway Compromise Head: Atraumatic, Normocephalic Neck: Normal Inspection, Supple, Non-Tender, Full Range of Motion Respiratory/Chest: No Respiratory Distress, Lungs Clear, Normal Breath Sounds, No Accessory Muscle Use, Chest Non-Tender Cardiovascular: Normal Peripheral Pulses, Regular Rate, Rhythm, No Edema, No Gallop, No JVD, No Murmur, No Rub GI/Abdominal: Normal Bowel Sounds, Soft, Non-Tender, No Organomegaly, No Distention, No Abnormal Bruit, No Mass, Other (hematoma on the left lateral abdomen due to Lovenox injections. ) (Female) Exam: Deferred Rectal (Female) Exam: Deferred Back Exam: Normal Inspection, Full Range of Motion, NT Extremities: Normal Inspection, Normal Range of Motion, Non-Tender, Normal Capillary Refill, No Pedal Edema Neurological: Alert, Oriented, CN II-XII Intact, Normal Cognition, Normal Gait, Normal Reflexes, No Motor/Sensory Deficits Psychiatric: Normal Affect, Normal Mood Skin Exam: Warm, Dry, Intact, Normal Color, No Rash Lymphatic: No Adenopathy Course - Vital Signs Last Recorded V/S: Last Vital Signs Temp 36.7 C 03/23/19 21:27 Pulse 86 03/23/19 21:27 Resp 21 H 03/23/19 21:27 BP 128/59 L 03/23/19 21:27 Pulse Ox 100 03/23/19 21:27 - Orders/Labs/Meds Orders: Active Orders 24 hr Category Date Time Status EKG Documentation Completion [RC] URGENT Care 03/23/19 21:28 Active Glucose [Blood Glucose Check, Bedside] [RC] ONETIME Care 03/23/19 21:26 Active LYME, TOTAL AB TEST/REFLEX [REF] Routine Lab 03/23/19 22:14 Received LYME, WESTERN BLOT, SERUM [REF] Urgent Lab 03/23/19 22:03 Ordered UA RFX DONI AND CULT IF INDIC [URIN] Urgent Lab 03/23/19 21:28 Ordered [facility] [REF] Urgent Lab 03/23/19 22:03 Ordered Labs: Laboratory Tests 03/23/19 03/23/19 03/23/19 Range/Units 21:35 21:35 21:35 WBC 7.7 (5.0-10.0) 10^3/uL RBC 4.73 (4.2-5.4) 10^6/uL Hgb 14.2 (12.0-16.0) g/dL Hct 42.8 (37.0-47.0) % MCV 90.5 (80-100) fL MCH 30.0 (27.0-34.0) pg MCHC 33.2 (33.0-35.0) g/dL Plt Count 276 (150-450) 10^3/uL Neut % (Auto) 48.5 (42.2-75.2) % Lymph % (Auto) 38.8 (20.5-50.1) % [place] % (Auto) 10.1 H (2-8) % Eos % (Auto) 2.2 (1.0-3.0) % Baso % (Auto) 0.4 (0.0-1.0) % Sodium 132 L (135-145) mmol/L Potassium 4.2 (3.6-5.0) mmol/L Chloride 99 L (101-111) mmol/L Carbon Dioxide 22.0 (21.0-31.0) mmol/L Anion Gap 15.2 BUN 12 (7-18) mg/dL Creatinine 0.7 (0.6-1.3) mg/dL Est Cr Clr Drug Dosing 97.65 mL/min Estimated GFR (MDRD) > 60 BUN/Creatinine Ratio 17.14 Glucose 299 H (74-105) mg/dL POC Glucose 305 H (70-105) mg/dl Calcium 8.7 (8.4-10.2) mg/dl Total Bilirubin 0.6 (0.2-1.0) mg/dL AST 35 (10-42) IU/L ALT 39 (10-60) IU/L Alkaline Phosphatase 59 (42-121) IU/L Troponin I < 0.02 (0.00-0.02) ng/ml Total Protein 6.9 (6.7-8.2) g/dl Albumin 3.8 (3.2-5.5) g/dl Globulin 3.1 Albumin/Globulin Ratio 1.23 Urine Color (YELLOW) Urine Appearance (CLEAR) Urine pH (5.0-9.0) Ur Specific [place] (1.005-1.030) Urine Protein (NEGATIVE) Urine Glucose (UA) (NEGATIVE) Urine Ketones (NEGATIVE) Urine Occult Blood (NEGATIVE) Urine Nitrite (NEGATIVE) Urine Bilirubin (NEGATIVE) Urine Urobilinogen (0.2-1.0) mg/dL Ur Leukocyte Esterase (NEGATIVE) Urine Opiates Screen (NEGATIVE) Ur Oxycodone Screen (NEGATIVE) Urine Methadone Screen (NEGATIVE) Ur Barbiturates Screen (NEGATIVE) U Tricyclic Antidepress (NEGATIVE) Ur Phencyclidine Scrn (NEGATIVE) Ur Amphetamine Screen (NEGATIVE) U Methamphetamines Scrn (NEGATIVE) Urine MDMA Screen (NEGATIVE) U Benzodiazepines Scrn (NEGATIVE) Urine Cocaine Screen (NEGATIVE) U Marijuana (THC) Screen (NEGATIVE) 03/23/19 03/23/19 Range/Units 22:20 22:20 WBC (5.0-10.0) 10^3/uL RBC (4.2-5.4) 10^6/uL Hgb (12.0-16.0) g/dL Hct (37.0-47.0) % MCV (80-100) fL MCH (27.0-34.0) pg MCHC (33.0-35.0) g/dL Plt Count (150-450) 10^3/uL Neut % (Auto) (42.2-75.2) % Lymph % (Auto) (20.5-50.1) % [place] % (Auto) (2-8) % Eos % (Auto) (1.0-3.0) % Baso % (Auto) (0.0-1.0) % Sodium (135-145) mmol/L Potassium (3.6-5.0) mmol/L Chloride (101-111) mmol/L Carbon Dioxide (21.0-31.0) mmol/L Anion Gap BUN (7-18) mg/dL Creatinine (0.6-1.3) mg/dL Est Cr Clr Drug Dosing mL/min Estimated GFR (MDRD) BUN/Creatinine Ratio Glucose (74-105) mg/dL POC Glucose (70-105) mg/dl Calcium (8.4-10.2) mg/dl Total Bilirubin (0.2-1.0) mg/dL AST (10-42) IU/L ALT (10-60) IU/L Alkaline Phosphatase (42-121) IU/L Troponin I (0.00-0.02) ng/ml Total Protein (6.7-8.2) g/dl Albumin (3.2-5.5) g/dl Globulin Albumin/Globulin Ratio Urine Color Yellow (YELLOW) Urine Appearance Clear (CLEAR) Urine pH 5.5 (5.0-9.0) Ur Specific [place] 1.025 (1.005-1.030) Urine Protein Negative (NEGATIVE) Urine Glucose (UA) 500 H (NEGATIVE) Urine Ketones Negative (NEGATIVE) Urine Occult Blood Small H (NEGATIVE) Urine Nitrite Negative (NEGATIVE) Urine Bilirubin Negative (NEGATIVE) Urine Urobilinogen 0.2 (0.2-1.0) mg/dL Ur Leukocyte Esterase Negative (NEGATIVE) Urine Opiates Screen Negative (NEGATIVE) Ur Oxycodone Screen Negative (NEGATIVE) Urine Methadone Screen Negative (NEGATIVE) Ur Barbiturates Screen Negative (NEGATIVE) U Tricyclic Antidepress Negative (NEGATIVE) Ur Phencyclidine Scrn Negative (NEGATIVE) Ur Amphetamine Screen Negative (NEGATIVE) U Methamphetamines Scrn Negative (NEGATIVE) Urine MDMA Screen Negative (NEGATIVE) U Benzodiazepines Scrn Negative (NEGATIVE) Urine Cocaine Screen Negative (NEGATIVE) U Marijuana (THC) Screen Negative (NEGATIVE) - Radiology Interpretation Free Text/Narrative:: EXAM: XR Chest, 1 View EXAM DATE/TIME: 03/23/2019 9:48 PM CLINICAL HISTORY: 48 years old, female; Signs and symptoms; Other: Chest pain TECHNIQUE: Imaging protocol: XR of the chest, 1 view. COMPARISON: CR Chest 2V 06/09/2018 12:09 PM FINDINGS: Lungs: Unremarkable. No consolidation. Pleural space: Unremarkable. No pleural effusion. No pneumothorax. Heart/Mediastinum: Unremarkable. No cardiomegaly. Bones/joints: Unremarkable. IMPRESSION: No acute findings. Thank you for allowing us to participate in the care of your patient. Dictated and Authenticated by: Tim Martinez MD 03/23/2019 10:27 PM Central Time ([place] & [place]) Departure - Departure Time of Disposition: 22:39 Disposition: Home, Self-Care 01 Condition: Fair Clinical Impression: Elevated blood sugar level, Nausea Fatigue Qualifiers: Fatigue type: unspecified Qualified Code(s): R53.83 - Other fatigue Instructions: Hyperglycemia, [id number], Nausea, Adult Forms: ED Department Discharge Care Plan Goals: The patient was advised of the examination, lab, EKG and x-ray results during the visit. The patient was encouraged to take her medications as directed. The patient should follow-up with her primary care facility for continued evaluation and further treatment. If the patient has any additional symptoms or concerns, the patient should either return to the emergency department or visit her primary care facility. - My Orders Last 24 Hours: My Active Orders 03/23/19 21:26 Glucose [Blood Glucose Check, Bedside] [RC] ONETIME 03/23/19 21:28 EKG Documentation Completion [RC] URGENT UA RFX DONI AND CULT IF INDIC [URIN] Urgent 03/23/19 22:03 LYME, WESTERN BLOT, SERUM [REF] Urgent [facility] [REF] Urgent 03/23/19 22:14 LYME, TOTAL AB TEST/REFLEX [REF] Routine - Assessment/Plan Last 24 Hours: My Active Orders 03/23/19 21:26 Glucose [Blood Glucose Check, Bedside] [RC] ONETIME 03/23/19 21:28 EKG Documentation Completion [RC] URGENT UA RFX DONI AND CULT IF INDIC [URIN] Urgent 03/23/19 22:03 LYME, WESTERN BLOT, SERUM [REF] Urgent [facility] [REF] Urgent 03/23/19 22:14 LYME, TOTAL AB TEST/REFLEX [REF] Routine
== END 2019-03-23 22:47 | disposition home or self-care (01) ==
LOC: DL.ED 21:24
DX: E11.65 Type 2 diabetes mellitus with hyperglycemia (principal); R53.83 Other fatigue; R11.0 Nausea; J45.909 Unspecified asthma, uncomplicated; Z88.8 Allergy status to other drugs, medicaments and biological substances; Z79.899 Other long term (current) drug therapy; Z79.4 Long term (current) use of insulin
CPT/HCPCS: 36415; 71045; 80053; 80305-QW; 81001; 82962; 84484; 85025; 86618; 86788; 93005; 99285-25

== ENCOUNTER 2019-11-09 17:10 | Emergency (ER) | payer BC ==
[2019-11-09 17:50] LABS: ANION GAP 13.5; CHLORIDE,CL 103 mmol/L (101-111); SODIUM,NA 137 mmol/L (135-145)
[2019-11-09 17:51] VITALS: BP 141/70; PULSE 91
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
== END 2019-11-09 18:21 | disposition home or self-care (01) ==
LOC: DL.ED 17:10
DX: R07.9 Chest pain, unspecified (principal); I10 Essential (primary) hypertension; E11.9 Type 2 diabetes mellitus without complications; K21.9 Gastro-esophageal reflux disease without esophagitis; J45.909 Unspecified asthma, uncomplicated; Z86.718 Personal history of other venous thrombosis and embolism; Z88.8 Allergy status to other drugs, medicaments and biological substances; Z79.899 Other long term (current) drug therapy; Z79.01 Long term (current) use of anticoagulants; Z79.4 Long term (current) use of insulin
CPT/HCPCS: 36415; 71045; 80053; 81001; 84484; 85025; 93005; 99285-25

== ENCOUNTER 2019-11-29 22:05 | Emergency (ER) | payer BC ==
[2019-11-29 23:18] VITALS: BP 140/76; PULSE 86
[2019-11-29 23:48] LABS: ANION GAP 12.8; CHLORIDE,CL 98 mmol/L (101-111); SODIUM,NA 133 mmol/L (135-145)
[2019-11-30] MEDS ORDERED: Sodium Chloride 0.9% 1,000 ML IV ONE (00:08)
--- NOTE | 2019-11-30 01:08 | EDM.PDOC ---
ED HPI GENERAL MEDICAL PROBLEM - General Chief Complaint: General Stated Complaint: FEVER AND WEEK Time Seen by Provider: 11/29/19 23:20 Source of Information: Reports: Patient History Limitations: Reports: No Limitations - History of Present Illness INITIAL COMMENTS - FREE TEXT/NARRATIVE: ED with c/o feeling week and low grade temp, Reports a couple days of bad diarrhea last week. Stools solid now, normal except for being "pale". No blood noted in stool. No nausea, Able to drink liquids. Dizzy at times. Blood sugar yesterday 290, doesn't normally check them, unsure of last A1c. No cough,,No abdominal pain. No SOB, No urinary sx. Epigastric Pain Score (Numeric/FACES): 3 - Related Data Allergies Allergy/AdvReac Type Severity Reaction Status Date / Time zolmitriptan [From Zomig] Allergy Diarrhea Verified 11/29/19 23:18 sumatriptan [From Imitrex] AdvReac Chest Verified 11/29/19 23:18 Presssure sumatriptan succinate AdvReac Chest Verified 11/29/19 23:18 [From Imitrex] Presssure Home Meds: Home Meds Acetaminophen/Butalbital/Caff [Fioricet] 1 tab PO Q4H PRN 06/16/14 [History] Albuterol Sulfate [Albuterol Sulfate HFA] 2 puff INH Q4H PRN 06/16/14 [History] Cranberry Ext/C/L. Sporogenes [Azo Cranberry] 1 tab PO DAILY 06/16/14 [History] Lisinopril 10 mg PO DAILY 06/16/14 [History] Mv-Mn/Iron/FA/Herbal/Digestive [ One Tablet] 1 tab PO DAILY 06/16/14 [ History] Warfarin Sodium [Jantoven] 1 tab PO DAILY 06/16/14 [History] Esomeprazole [NexIUM] 40 mg PO BEDTIME 02/20/16 [History] Liraglutide [Victoza] 1.8 mg SQ DAILY 12/09/17 [History] Empagliflozin [Jardiance] 25 mg PO DAILY 11/09/19 [History] Insulin Glargine,Hum.Rec.Anlog [Tofarnaz Solmarjorie] 74 unit SQ DAILY 11/09/19 [ History] atorvaSTATin [Lipitor] 10 mg PO BEDTIME 11/09/19 [History] Past Medical History Cardiovascular History: Reports: Aneurysm, Blood Clots/VTE/DVT, Hypertension Respiratory History: Reports: Asthma, Other (See Below) Other Respiratory History: allergies Gastrointestinal History: Reports: GERD Genitourinary History: Reports: UTI, Recurrent 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 History: Reports: None Neurological History: Reports: Migraines Psychiatric History: Reports: None Endocrine/Metabolic History: Reports: Diabetes, Type II Hematologic History: Reports: None Immunologic History: Reports: None Oncologic (Cancer) History: Reports: None Dermatologic History: Reports: None - Infectious Disease History Infectious Disease History: Reports: Chicken Pox - Past Surgical History Head Surgeries/Procedures: Reports: None HEENT Surgical History: Reports: Oral Surgery Cardiovascular Surgical History: Reports: Other (See Below) Other Cardiovascular Surgeries/Procedures: angiogram 03/19/19 GI Surgical History: Reports: Appendectomy, Cholecystectomy, Hernia Repair/Other Female Surgical History: Reports: Section Other Female Surgeries/Procedures: x3 Neurological Surgical History: Reports: None Musculoskeletal Surgical History: Reports: Other (See Below) Other Musculoskeletal Surgeries/Procedures:: Right knee surgery on June 3 L) knee surgeries Social & Family History - Family History Family Medical History: Noncontributory - Tobacco Use Smoking Status *Q: Never Smoker Second Hand Smoke Exposure: No - Caffeine Use Caffeine Use: Reports: Soda Other Caffeine Use: diet mountain dew - Recreational Drug Use Recreational Drug Use: No - Living Situation & Occupation Living situation: Reports: with Family Occupation: Employed ED ROS GENERAL - Review of Systems Review Of Systems: Comprehensive ROS is negative, except as noted in HPI. ED EXAM, GENERAL - Physical Exam Exam: See Below Exam Limited By: No Limitations General Appearance: Alert, No Apparent Distress Eye Exam: Bilateral Eye: EOMI Ears: Normal External Exam Nose: Normal Inspection Throat/Mouth: Normal Inspection Head: Atraumatic, Normocephalic Neck: Normal Inspection, Full Range of Motion Respiratory/Chest: No Respiratory Distress, Lungs Clear, Normal Breath Sounds Cardiovascular: Regular Rate, Rhythm, No Edema GI/Abdominal: Normal Bowel Sounds, Soft, Non-Tender Back Exam: Full Range of Motion Extremities: Normal Inspection Neurological: Alert, Oriented, Normal Cognition, No Motor/Sensory Deficits Psychiatric: Anxious Skin Exam: Warm, Dry, Intact, Normal Color, No Rash Course - Vital Signs Last Recorded V/S: Last Vital Signs Temp 98.8 F 11/29/19 23:15 Pulse 86 11/29/19 23:15 Resp 16 11/29/19 23:15 BP 140/76 11/29/19 23:15 Pulse Ox 100 11/29/19 23:15 Orthostatic Blood Pressure [ 127/75 Standing] Orthostatic Blood Pressure [ 131/83 Sitting] Orthostatic Blood Pressure [ 125/65 Supine] - Orders/Labs/Meds Orders: Active Orders 24 hr Category Date Time Status Orthostatic Vital Signs [RC] ASDIRECTED Care 11/29/19 23:56 Active Labs: Laboratory Tests 11/29/19 11/29/19 11/29/19 Range/Units 11:40 23:18 23:18 WBC 9.1 (5.0-10.0) 10^3/uL RBC 4.83 (4.2-5.4) 10^6/uL Hgb 14.4 (12.0-16.0) g/dL Hct 43.2 (37.0-47.0) % MCV 89.4 (80-100) fL MCH 29.8 (27.0-34.0) pg MCHC 33.3 (33.0-35.0) g/dL Plt Count 293 (150-450) 10^3/uL Neut % (Auto) 58.7 (42.2-75.2) % Lymph % (Auto) 27.3 (20.5-50.1) % [place] % (Auto) 11.7 H (2-8) % Eos % (Auto) 2.0 (1.0-3.0) % Baso % (Auto) 0.3 (0.0-1.0) % PT (9.0-12.0) SEC INR (0.9-1.2) Sodium 133 L (135-145) mmol/L Potassium 3.8 (3.6-5.0) mmol/L Chloride 98 L (101-111) mmol/L Carbon Dioxide 26.0 (21.0-31.0) mmol/L Anion Gap 12.8 BUN 17 (7-18) mg/dL Creatinine 0.6 (0.6-1.3) mg/dL Est Cr Clr Drug Dosing 112.72 mL/min Estimated GFR (MDRD) > 60 BUN/Creatinine Ratio 28.33 Glucose 195 H (74-105) mg/dL Lactic Acid (0.5-2.0) mmol/L Calcium 8.5 (8.4-10.2) mg/dl Total Bilirubin 0.5 (0.2-1.0) mg/dL AST 19 (10-42) IU/L ALT 29 (10-60) IU/L Alkaline Phosphatase 78 (42-121) IU/L Total Protein 7.1 (6.7-8.2) g/dl Albumin 3.9 (3.2-5.5) g/dl Globulin 3.2 Albumin/Globulin Ratio 1.22 Amylase 48 (28-100) U/L Lipase 39 (22-51) U/L Urine Color Yellow (YELLOW) Urine Appearance Clear (CLEAR) Urine pH 5.5 (5.0-9.0) Ur Specific [place] 1.025 (1.005-1.030) Urine Protein Negative (NEGATIVE) Urine Glucose (UA) 500 H (NEGATIVE) Urine Ketones Negative (NEGATIVE) Urine Occult Blood Negative (NEGATIVE) Urine Nitrite Negative (NEGATIVE) Urine Bilirubin Negative (NEGATIVE) Urine Urobilinogen 0.2 (0.2-1.0) mg/dL Ur Leukocyte Esterase Negative (NEGATIVE) Urine RBC Not seen /HPF Urine WBC 0-5 (0-5/HPF) /HPF Ur Epithelial Cells Few (NOT SEEN) /HPF Amorphous Sediment Few (NOT SEEN) /HPF Urine Bacteria Rare (0-FEW/HPF) /HPF 11/29/19 11/29/19 Range/Units 23:18 23:18 WBC (5.0-10.0) 10^3/uL RBC (4.2-5.4) 10^6/uL Hgb (12.0-16.0) g/dL Hct (37.0-47.0) % MCV (80-100) fL MCH (27.0-34.0) pg MCHC (33.0-35.0) g/dL Plt Count (150-450) 10^3/uL Neut % (Auto) (42.2-75.2) % Lymph % (Auto) (20.5-50.1) % [place] % (Auto) (2-8) % Eos % (Auto) (1.0-3.0) % Baso % (Auto) (0.0-1.0) % PT 16.1 H D (9.0-12.0) SEC INR 1.6 H (0.9-1.2) Sodium (135-145) mmol/L Potassium (3.6-5.0) mmol/L Chloride (101-111) mmol/L Carbon Dioxide (21.0-31.0) mmol/L Anion Gap BUN (7-18) mg/dL Creatinine (0.6-1.3) mg/dL Est Cr Clr Drug Dosing mL/min Estimated GFR (MDRD) BUN/Creatinine Ratio Glucose (74-105) mg/dL Lactic Acid 1.5 (0.5-2.0) mmol/L Calcium (8.4-10.2) mg/dl Total Bilirubin (0.2-1.0) mg/dL AST (10-42) IU/L ALT (10-60) IU/L Alkaline Phosphatase (42-121) IU/L Total Protein (6.7-8.2) g/dl Albumin (3.2-5.5) g/dl Globulin Albumin/Globulin Ratio Amylase (28-100) U/L Lipase (22-51) U/L Urine Color (YELLOW) Urine Appearance (CLEAR) Urine pH (5.0-9.0) Ur Specific [place] (1.005-1.030) Urine Protein (NEGATIVE) Urine Glucose (UA) (NEGATIVE) Urine Ketones (NEGATIVE) Urine Occult Blood (NEGATIVE) Urine Nitrite (NEGATIVE) Urine Bilirubin (NEGATIVE) Urine Urobilinogen (0.2-1.0) mg/dL Ur Leukocyte Esterase (NEGATIVE) Urine RBC /HPF Urine WBC (0-5/HPF) /HPF Ur Epithelial Cells (NOT SEEN) /HPF Amorphous Sediment (NOT SEEN) /HPF Urine Bacteria (0-FEW/HPF) /HPF Meds: Medications Discontinued Medications Generic Name Dose Route Start Last Admin Trade Name Freq PRN Reason Stop Dose Admin Sodium Chloride 1,000 mls @ 999 mls/hr 11/30/19 00:08 11/30/19 01:05 Normal Saline IV 11/30/19 01:08 Not Given .BOLUS ONE - Re-Assessments/Exams Free Text/Narrative Re-Assessment/Exam: Unable to gain IV access after 4 attempts. Declined further attempts for IVF. Departure - Departure Time of Disposition: 01:06 Disposition: Home, Self-Care 01 Condition: Good Clinical Impression: Gastroenteritis, Dehydration, mild, IDDM (insulin dependent diabetes mellitus) - Discharge Information *PRESCRIPTION DRUG MONITORING PROGRAM REVIEWED*: No *COPY OF PRESCRIPTION DRUG MONITORING REPORT IN PATIENT MARIVEL: No Instructions: Dehydration, Adult, [id number] Referrals: Irma Corona MD [Primary Care Provider] - Forms: ED Department Discharge Additional Instructions: increase fluid monitor blod sugar bland diet as tolerated clinic follow up this coming week Sepsis Event Note - Evaluation Sepsis Screening Result: No Definite Risk - Focused Exam Vital Signs: Vital Signs Temp Pulse Resp BP Pulse Ox 11/29/19 23:15 98.8 F 86 16 140/76 100 Date Exam was Performed: 11/30/19 Time Exam was Performed: 05:41 - My Orders Last 24 Hours: My Active Orders 11/29/19 23:56 Orthostatic Vital Signs [RC] ASDIRECTED - Assessment/Plan Last 24 Hours: My Active Orders 11/29/19 23:56 Orthostatic Vital Signs [RC] ASDIRECTED
== END 2019-11-30 01:26 | disposition home or self-care (01) ==
LOC: DL.ED 22:05
DX: K52.9 Noninfective gastroenteritis and colitis, unspecified (principal); E86.0 Dehydration; E11.9 Type 2 diabetes mellitus without complications; J45.909 Unspecified asthma, uncomplicated; I10 Essential (primary) hypertension; I82.409 Acute embolism and thrombosis of unspecified deep veins of unspecified lower extremity; Z88.8 Allergy status to other drugs, medicaments and biological substances; Z79.4 Long term (current) use of insulin; Z79.01 Long term (current) use of anticoagulants; Z79.899 Other long term (current) drug therapy
CPT/HCPCS: 36415; 80053; 81001; 82150; 83605; 83690; 85025; 85610; 99283

== ENCOUNTER 2020-10-25 02:17 | Emergency (ER) | payer MEDICAID ==
[2020-10-25 02:43] VITALS: BP 127/59; PULSE 84
--- NOTE | 2020-10-25 02:47 | EDM.PDOC ---
ED HPI GENERAL MEDICAL PROBLEM - General Stated Complaint: COVID +/SUGARS ARE TOO JANICE Time Seen by Provider: 10/25/20 02:35 Source of Information: Reports: Patient History Limitations: Reports: No Limitations - History of Present Illness INITIAL COMMENTS - FREE TEXT/NARRATIVE: This 50 yo female patient reports to the ED due to an elevated blood sugar level. The patient reports her medication had switched 2 days ago (switched from Lantus to Levemir). The patient reports her last dose of Levemir was yesterday 10/24/20 at 0300. The patient reports she was supposed to be taking 15 mL of Levemir, but has been taking 15 units. The patient reports she recently changed to Medicaid and was not able to get her Lantus and was switched to Levemir. The patient reports she ran out of her Lantus on 10/14/20. The patient has also recently been diagnosed with COVID and was started on Prednisone. Duration: Day(s):, Constant Location: Reports: Other Quality: Reports: Other Severity: Moderate Improves with: Reports: None Worsens with: Reports: None Context: Reports: Other Associated Symptoms: Reports: No Other Symptoms - Related Data Allergies Allergy/AdvReac Type Severity Reaction Status Date / Time zolmitriptan [From Zomig] Allergy Diarrhea Verified 10/25/20 02:33 sumatriptan [From Imitrex] AdvReac Chest Verified 10/25/20 02:33 Presssure sumatriptan succinate AdvReac Chest Verified 10/25/20 02:33 [From Imitrex] Presssure Home Meds: Home Meds Acetaminophen/Butalbital/Caff [Fioricet] 1 tab PO Q4H PRN 06/16/14 [History] Albuterol Sulfate [Albuterol Sulfate HFA] 2 puff INH Q4H PRN 06/16/14 [History] Cranberry Ext/C/L. Sporogenes [Azo Cranberry] 1 tab PO DAILY 06/16/14 [History] Lisinopril 10 mg PO DAILY 06/16/14 [History] Mv-Mn/Iron/FA/Herbal/Digestive [ One Tablet] 1 tab PO DAILY 06/16/14 [History] Warfarin Sodium [Jantoven] 1 tab PO DAILY 06/16/14 [History] Esomeprazole [NexIUM] 40 mg PO BEDTIME 02/20/16 [History] Liraglutide [Victoza] 1.8 mg SQ DAILY 12/09/17 [History] Empagliflozin [Jardiance] 25 mg PO DAILY 11/09/19 [History] atorvaSTATin [Lipitor] 10 mg PO BEDTIME 11/09/19 [History] Insulin Detemir [Levemir Flextouch] 80 units SQ BEDTIME 10/25/20 [History] predniSONE 40 mg PO DAILY 10/25/20 [History] Past Medical History Cardiovascular History: Reports: Aneurysm, Blood Clots/VTE/DVT, Hypertension Respiratory History: Reports: Asthma, Other (See Below) Other Respiratory History: allergies Gastrointestinal History: Reports: GERD Genitourinary History: Reports: UTI, Recurrent 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: Reports: Musculoskeletal History: Reports: None Neurological History: Reports: Migraines Psychiatric History: Reports: None Endocrine/Metabolic History: Reports: Diabetes, Type II Hematologic History: Reports: None Immunologic History: Reports: None Oncologic (Cancer) History: Reports: None Dermatologic History: Reports: None - Infectious Disease History Infectious Disease History: Reports: Chicken Pox - Past Surgical History Head Surgeries/Procedures: Reports: None HEENT Surgical History: Reports: Oral Surgery Cardiovascular Surgical History: Reports: Other (See Below) Other Cardiovascular Surgeries/Procedures: angiogram 03/19/19 GI Surgical History: Reports: Appendectomy, Cholecystectomy, Hernia Repair/Other Female Surgical History: Reports: Section Other Female Surgeries/Procedures: x3 Neurological Surgical History: Reports: None Musculoskeletal Surgical History: Reports: Other (See Below) Other Musculoskeletal Surgeries/Procedures:: Right knee surgery on July 05, 2017 3 L) knee surgeries Social & Family History - Family History Family Medical History: No Pertinent Family History - Caffeine Use Caffeine Use: Reports: Soda Other Caffeine Use: diet mountain dew - Living Situation & Occupation Living situation: Reports: with Family Occupation: Employed ED ROS GENERAL - Review of Systems Review Of Systems: Comprehensive ROS is negative, except as noted in HPI. ED EXAM GENERAL NO PERIP PULSE - Physical Exam Exam: See Below Exam Limited By: No Limitations General Appearance: Alert, WD/WN, Mild Distress, Obese Eye Exam: Bilateral Eye: EOMI, Normal Inspection, PERRL Ears: Normal External Exam, Normal Canal, Hearing Grossly Normal, Normal TMs Nose: Normal Inspection, Normal Mucosa, No Blood Throat/Mouth: Normal Inspection, Normal Lips, Normal Teeth, Normal Gums, Normal Oropharynx, Normal Voice, No Airway Compromise Head: Atraumatic, Normocephalic Neck: Normal Inspection, Supple, Non-Tender, Full Range of Motion Respiratory/Chest: No Respiratory Distress, Lungs Clear, Normal Breath Sounds, No Accessory Muscle Use, Chest Non-Tender Cardiovascular: Normal Peripheral Pulses, Regular Rate, Rhythm, No Edema, No Gallop, No JVD, No Murmur, No Rub GI/Abdominal: Normal Bowel Sounds, Soft, Non-Tender, No Organomegaly, No Distention, No Abnormal Bruit, No Mass, Other (obese) (Female) Exam: Deferred Rectal (Female) Exam: Deferred Back Exam: Normal Inspection, Full Range of Motion, NT Extremities: Normal Inspection, Normal Range of Motion, Non-Tender, Normal Capillary Refill, No Pedal Edema Neurological: Alert, Oriented, CN II-XII Intact, Normal Cognition, Normal Gait, Normal Reflexes, No Motor/Sensory Deficits Psychiatric: Normal Affect, Normal Mood Skin Exam: Warm, Dry, Intact, Normal Color, No Rash Lymphatic: No Adenopathy Course - Vital Signs Last Recorded V/S: Last Vital Signs Temp 36.6 C 10/25/20 02:37 Pulse 84 10/25/20 02:37 Resp 20 10/25/20 02:37 BP 127/59 L 10/25/20 02:37 Pulse Ox 100 10/25/20 02:37 - Orders/Labs/Meds Orders: Active Orders 24 hr Category Date Time Status Blood Glucose Check, Bedside [RC] ONETIME Care 10/25/20 03:06 Ordered Dextrose 50% in Water Med 10/25/20 03:06 Active 50 ml IV ASDIRECTED PRN Glucagon,Human Recombinant [GlucaGen] Med 10/25/20 03:06 Active 1 mg IM ASDIRECTED PRN Medication Orders Dextrose/Water (Dextrose 50% In Water) 50 ml IV ASDIRECTED PRN PRN Reason: Hypoglycemia Glucagon (Glucagen) 1 mg IM ASDIRECTED PRN PRN Reason: Hypoglycemia Labs: Laboratory Tests 10/25/20 10/25/20 10/25/20 Range/Units 02:29 02:29 02:29 WBC 6.6 (5.0-10.0) 10^3/uL RBC 5.01 (4.2-5.4) 10^6/uL Hgb 15.1 (12.0-16.0) g/dL Hct 43.9 (37.0-47.0) % MCV 87.6 (80-100) fL MCH 30.1 (27.0-34.0) pg MCHC 34.4 (33.0-35.0) g/dL Plt Count 282 (150-450) 10^3/uL Neut % (Auto) 67.6 (42.2-75.2) % Lymph % (Auto) 26.8 (20.5-50.1) % Cameron % (Auto) 5.2 (2-8) % Eos % (Auto) 0.2 L (1.0-3.0) % Baso % (Auto) 0.2 (0.0-1.0) % Add Manual Diff Yes Neutrophils % (Manual) 69 (42-75) % Band Neutrophils % 3 % Lymphocytes % (Manual) 22 (20-50) % Monocytes % (Manual) 6 (2-8) % Sodium 131 L (136-145) mmol/L Potassium 4.5 (3.5-5.1) mmol/L Chloride 95 L (98-107) mmol/L Carbon Dioxide 20 L (21-32) mmol/L Anion Gap 20.5 H (7-13) mEq/L BUN 21 H (7-18) mg/dL Creatinine 1.13 H (0.55-1.02) mg/dL Est Cr Clr Drug Dosing 65.84 mL/min Estimated GFR (MDRD) 51 BUN/Creatinine Ratio 18.6 (No establ ref range) Glucose 525 H* (74-99) mg/dL POC Glucose > 500 H* (70-105) mg/dl Calcium 8.6 (8.5-10.1) mg/dL Total Bilirubin 0.2 (0.2-1.0) mg/dL AST 23 (15-37) U/L ALT 47 (14-59) U/L Alkaline Phosphatase 109 (46-116) U/L Total Protein 7.7 (6.4-8.2) g/dL Albumin 3.8 (3.4-5.0) g/dL Globulin 3.9 Albumin/Globulin Ratio 1.0 Ketones Negative Meds: Medications Generic Name Dose Route Start Last Admin Trade Name Freq PRN Reason Stop Dose Admin Dextrose/Water 50 ml 10/25/20 03:06 Dextrose 50% In Water IV ASDIRECTED PRN Hypoglycemia Glucagon 1 mg 10/25/20 03:06 Glucagen IM ASDIRECTED PRN Hypoglycemia Discontinued Medications Generic Name Dose Route Start Last Admin Trade Name Luis PRN Reason Stop Dose Admin Insulin Human NPH 10 unit 10/25/20 03:06 10/25/20 03:19 Humulin N SQ 10/25/20 03:07 10 unit ONETIME ONE Administration Departure - Departure Time of Disposition: 04:02 Disposition: Home, Self-Care 01 Condition: Fair Clinical Impression: Hyperglycemia, Nonadherence to medication - Discharge Information *PRESCRIPTION DRUG MONITORING PROGRAM REVIEWED*: Not Applicable *COPY OF PRESCRIPTION DRUG MONITORING REPORT IN PATIENT MARIVEL: Not Applicable Forms: ED Department Discharge Care Plan Goals: The patient was advised of the examination and lab results during the visit. The patient was given an injection of insulin while in the ED. The patient was encouraged to take her medications as directed. The patient should follow-up with her primary care facility for continued evaluation and further treatment. If the patient has any additional symptoms or concerns, the patient should either return to the emergency department or visit her primary care facility. Sepsis Event Note (ED) - Focused Exam Vital Signs: Vital Signs Temp Pulse Resp BP Pulse Ox 10/25/20 02:37 36.6 C 84 20 127/59 L 100 - My Orders Last 24 Hours: My Active Orders 10/25/20 03:06 Blood Glucose Check, Bedside [RC] ONETIME Dextrose 50% in Water 50 ml IV ASDIRECTED PRN Glucagon,Human Recombinant [GlucaGen] 1 mg IM ASDIRECTED PRN - Assessment/Plan Last 24 Hours: My Active Orders 10/25/20 03:06 Blood Glucose Check, Bedside [RC] ONETIME Dextrose 50% in Water 50 ml IV ASDIRECTED PRN Glucagon,Human Recombinant [GlucaGen] 1 mg IM ASDIRECTED PRN
[2020-10-25 02:58] LABS: ANION GAP 20.5 mEq/L (7-13); CHLORIDE,CL 95 mmol/L (98-107); SODIUM,NA 131 mmol/L (136-145)
[2020-10-25] MEDS ORDERED: Insulin Isophane NPH, Human 100 Units/ML 3 ML Vial SQ ONE (03:06)
[2020-10-25] MEDS ORDERED: Glucagon,Human Recombinant 1 MG Vial IM PRN (03:06)
[2020-10-25] MEDS ORDERED: 50% Dextrose in Water 50 ML Syringe IV PRN (03:06)
== END 2020-10-25 04:10 | disposition home or self-care (01) ==
LOC: DL.ED 02:17
DX: E11.65 Type 2 diabetes mellitus with hyperglycemia (principal); I10 Essential (primary) hypertension; K21.9 Gastro-esophageal reflux disease without esophagitis; J45.909 Unspecified asthma, uncomplicated; Z91.14 Patient's other noncompliance with medication regimen; Z88.8 Allergy status to other drugs, medicaments and biological substances; Z79.4 Long term (current) use of insulin; Z79.01 Long term (current) use of anticoagulants; Z79.899 Other long term (current) drug therapy
CPT/HCPCS: 36415; 80053; 82009; 82962; 85025; 99283; 99284; J1815